=== PATIENT | male | born 1985 | race Caucasian/White ===

== ENCOUNTER 2022-01-15 18:04 | Emergency (ER) | payer BC ==
[~2022-01-15] VITALS: Ht 172.7 cm; Wt 86.4 kg
[2022-01-15 18:09] VITALS: TEMP 98.2
[2022-01-15 19:30] LABS: HEMATOCRIT 46.4 % (42.0-52.0); HEMOGLOBIN 16.5 g/dl (13.5-18.0); MEAN CELL VOLUME 87 fl (80.0-100.0); MEAN CORPUSCULAR HEMOGLOBIN 31 pg (27-31); MEAN CORPUSCULAR HGB CONC 36 g/dl (33.0-37.0); MEAN PLATELET VOLUME 9.3 fl (7.4-10.4); PLATELET COUNT 362 K/mm3 (130-400); RED BLOOD COUNT 5.32 M/mm3 (4.20-5.60); REDCELL DISTRIBUTION WIDTH-CV 11.7 % (11.5-14.5)
[2022-01-15 19:47] LABS: ALANINE AMINOTRANSFERASE 28 U/L (0-55); ALBUMIN 4.8 gm/dL (3.5-5.0); ALKALINE PHOSPHATASE 55 U/L (40-150); ANION GAP 11 mmol/L (7-16); AST,SGOT 23 U/L (5-34); BILIRUBIN,TOTAL 0.8 mg/dL (0.2-1.2); BLOOD UREA NITROGEN 14 mg/dL (9-21); CALCIUM 9.8 mg/dL (8.4-10.2); CARBON DIOXIDE 24 mmol/L (22-29); CHLORIDE 103 mmol/L (98-107); CREATININE, serum 1.02 mg/dL (0.72-1.25); GLUCOSE 106 mg/dL (70-99); POTASSIUM 3.8 mmol/L (3.5-4.5); SODIUM 138 mmol/L (136-145); TOTAL PROTEIN 8.9 gm/dL (6.2-8.1)
[2022-01-15 19:49] LABS: LYMPHOCYTE 16 % (20.0-51.0); NEUTROPHILS 72 % (42.0-75.2)
[2022-01-15 19:50] LABS: PLATELET ESTIMATE NORMAL (NORMAL)
[2022-01-15 19:55] LABS: TROPONIN-I < 0.010 ng/mL (0.00-0.033)
[2022-01-15 20:49] VITALS: BP 154/106; PULSE 102
== END 2022-01-15 20:49 | disposition home or self-care (01) ==
LOC: COL.ER 18:04
PROVIDERS: Personal Emergency Response Attendant
DX: R00.2 Palpitations (principal)